=== PATIENT | male | born 1995 | race Caucasian/White ===

== ENCOUNTER 2019-08-13 15:20 | Emergency (ER) | payer OTHER, SELFPAY ==
[2019-08-13 15:22] VITALS: BP 150/79; PULSE 76; RESP 17; TEMP 36.7; O2SAT 100; BMI 28.6
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
[2019-08-13 19:00] VITALS: BP 131/88
== END 2019-08-13 19:01 | disposition home or self-care (01) ==
PROVIDERS: Emergency Provider Emergency Medicine
DX: S20.212A Contusion of left front wall of thorax, initial encounter (principal); V39.89XA Occupant (driver) (passenger) of three-wheeled motor vehicle injured in other specified transport accidents, initial encounter; Y93.I9 Activity, other involving external motion; Y99.8 Other external cause status
CPT/HCPCS: 71101; 99283